=== PATIENT | female | born 1980 | race Two or more races ===

== ENCOUNTER 2021-08-04 06:25 | Day surgery (SDC) | payer OTHER ==
[~2021-08-04 06:25] MED LIST: ALLEGRA ALLERG180 MG PO; SYNJARDY PO; TRULICITY1.5 MG/0.5 SQ; VITAMIN D PO
== END 2021-08-04 18:25 | disposition home or self-care (01) ==
LOC: CIR.AMB 06:25
PROVIDERS: ATTEND Colon & Rectal Surgery
DX: K60.1 Chronic anal fissure (principal); Z20.822 Contact with and (suspected) exposure to COVID-19

== ENCOUNTER 2023-04-04 07:09 | Outpatient (CLI) | payer OTHER | END 2023-04-04 07:11 | disposition home or self-care (01) | LOC: NUCLEAR 07:09 | PROVIDERS: ATTEND Internal Medicine | DX: I20.8 Other forms of angina pectoris (principal); E11.9 Type 2 diabetes mellitus without complications ==